=== PATIENT | female | born 1970 | race Caucasian/White ===

== ENCOUNTER → 2023-08-21 12:54 | Outpatient (REF) | payer OTHER, SELFPAY | LOC: HWWDC 12:54 | PROVIDERS: ATTENDING PHYSICIAN Nurse Practitioner Family | DX: Z12.31 Encounter for screening mammogram for malignant neoplasm of breast (principal) | CPT/HCPCS: 77063; 77067 ==

== ENCOUNTER 2023-08-21 15:34 | Emergency (ER) | payer OTHER, SELFPAY ==
[2023-08-21 15:34] VITALS: BMI 32.8
[2023-08-21 15:44] VITALS: BP 153/78
[2023-08-21 16:44] LABS: % Basophils 0.9 % (0-2); % Eosinophils 4.1 % (0-6); % Immature Granulocytes 0.3 % (0-0.5); % Lymphocytes 31.3 % (20.5-51.1); % Monocytes 8.7 % (1.7-9.3); % Neutrophils 54.7 % (42.2-75.2); Absolute Basophils 0.1 10^3/uL (0-0.2); Absolute Eosinophils 0.3 10^3/uL (0-0.7); Absolute Lymphocytes 2.1 10^3/uL (1.2-3.4); Absolute Monocytes 0.6 10^3/uL (0.1-0.6); Absolute Neutrophils 3.7 10^3/uL (1.4-6.5); Hematocrit 37.9 % (37.0-47.0); Hemoglobin 13.1 g/dL (12.0-16.0); Mean Corp Hgb Conc. 34.6 g/dL (33.0-37.0); Mean Corpuscular Hgb 29.6 pg (27.0-31.0); Mean Corpuscular Volume 85.7 fL (81.0-99.0); Mean Platelet Volume 9.3 fL (7.4-10.4); Nucleated Red Blood Cells % 0 %; Platelet Count 179 10^3/uL (130-400); Red Blood Cell Count 4.42 10^6/uL (4.20-5.40); Red Cell Dist. Width 12.9 % (11.5-14.5); White Blood Cell Count 6.8 10^3/uL (4.8-10.8)
[2023-08-21 16:53] LABS: ALT (SGPT) 34 U/L (0-35); AST (SGOT) 32 U/L (14-36); Albumin 4.3 g/dl (3.5-5.0); Alkaline Phosphatase 53 U/L (38-126); Blood Urea Nitrogen 19 mg/dl (7-17); Calcium 10.1 mg/dl (8.4-10.2); Carbon Dioxide 22 mmol/L (22-30); Chloride 104 mmol/L (98-107); Estimated Creatinine Clearance 82 ml/min; Glucose 202 mg/dl (70-99); Sodium 138 mmol/L (135-145); Total Bilirubin 0.6 mg/dl (0.2-1.3); eGFR > 60.00
[2023-08-21 17:02] LABS: Troponin I < 0.012 ng/ml
[2023-08-21] MEDS: PROTONIX 40 MG PO (18:27)
[2023-08-21 18:30] VITALS: BP 145/75
[2023-08-21 18:32] VITALS: BP 145/75
--- NOTE | 2023-08-21 23:18 | ED.GENMED ---
History of Present Illness
General
Chief Complaint: Chest Pain
Source: patient
Exam Limitations: none
Time Seen by Provider: 08/21/23 17:42
Nursing documentation reviewed up to this point in time: agreed with
Travel History
Have you had any contact with someone who has COVID-19?: No
Do you have any symptoms of coronavirus? Fever > 100 degrees, chills, cough, shortness of breath, sore throat, loss of taste or smell, muscle aches, or headache?: No
History of Present Illness
History of Present Illness:
Patient to ED for eval of intermittent sharp chest pain. Symptoms started approx 2 weeks ago. Reports 'waves of nausea' Denies fever/chills, vomiting, diarrhea. No SOB, diaphoresis. Sharp pain lasts for a few minutes and then resolves. No
aggravating or alleviating factors. Brought to ED by family for eval.
Past History
Past History
ED Past Medical History: CAD, COPD, Hypercholesterolemia, NIDDM, Psychiatric (Anxiety, depression), Other (peripheral arterial disease ), Other (Sleep apnea, uses CPAP) and Other (Aortic stenosis, diverticulitis, GERD)
ED Past Surgical History: Cardiac (3 cardiac stents 2018) and Other (catheterization of abdominal aorta with endarterectomy)
Social History
Tobacco: Former smoker
Alcohol: Occasional
Drug: None
Personal:
Living: alone
Employment: Employed
Family History
Family History: CAD
Review of Systems
Review of Systems
Allergies reviewed?: Yes
All Other Systems: ROS reviewed and negative except as documented in HPI and ROS
EENT: Reports no symptoms
Respiratory: Reports no symptoms
Cardiac: Reports chest pain
ABD/GI: Reports no symptoms
: Reports no symptoms
Musculoskeletal: Reports no symptoms
Skin: Reports no symptoms
Neurological: Reports no symptoms
Psychiatric: Reports no symptoms
Phy Exam
General Physical Exam
General Presentation: well appearing and no apparent distress
General age: appears stated age
General Skin: warm and dry
General Habitus: normal
General Mental: alert
Cardiovascular Exam
Cardiovascular Exam: regular rate/rhythm and no edema
Pulmonary Exam
Pulmonary Exam: lungs clear and no respiratory distress
Gastrointestinal Exam
Gastrointestinal Exam: normal bowel sounds, non tender, soft, no organomegaly, no pulsatile mass, non distended and no cva tenderness
Musculoskeletal Exam
Musculoskeletal Exam: full ROM and neuro vasc intact
Skin Exam
Skin Exam: normal color, warm/dry and no rash
Psychiatric Exam
Psychiatric Exam: normal mood/affect
Scores
Heart Score for Chest Pain Patients
STEMI patient?: No
History: Slightly or Non-Suspicious
ECG: Normal
Age: >45 - <65 years
Risk Factors: >/= 3 Risk Factors or History of CAD
Troponin: </= Normal Limit
Heart Score for Chest Pain Patients: 3
Heart Score Risk: 2.5% MACE over next 6 weeks
Course
Orders/Labs/Results
Orders:
Orders
08/21/23 15:43
Electrocardiogram (*1) Urgent
Reason for Study: Chest Pain
EKG- Treatment ONCE
08/21/23 16:06
Complete Blood Count/With Diff Urgent
08/21/23 16:07
Comprehensive Metabolic Panel Urgent
Troponin I Urgent
08/21/23 16:23
CR Chest - 2 Views Urgent
Comment:
Reason For Exam: chest pain
08/21/23 18:21
Pantoprazole [Protonix] 40 mg PO NOW STA
Abnormal Lab Results
08/21/23
16:07
BUN 19 H mg/dl
(7-17)
Glucose 202 H mg/dl
(70-99)
01/31/24 16:06
08/21/23 16:07
Vital Signs
Initial and Last Documented VS:
Initial Vital Signs
Temp Pulse Resp BP Pulse Ox
98.5 F 79 16 153/78 98
08/21/23 15:44 08/21/23 15:44 08/21/23 15:44 08/21/23 15:44 08/21/23 15:44
Last Documented Vital Signs
Temp Pulse Resp BP Pulse Ox
98.5 F 72 16 145/75 96
08/21/23 15:44 08/21/23 18:32 08/21/23 15:44 08/21/23 18:32 08/21/23 18:32
*Pulse Oximetry
Patient hypoxic: no
*Critical Care Note
Total Time (30-74mins, 75-104mins- exclusive of procedures): Not Applicable
ED Attending Note
-
Portions of this chart may have been created with voice recognition software.� Occasional wrong word or��sound alike� substitutions may have occurred due to the inherent limitations of voice recognition software.
Discharge Plan
Departure
Patient Disposition: Home (Routine Discharge)
Date of Disposition: 08/21/23
Time of Disposition: 18:21
Patient with high blood pressure during this ER visit?: No
Condition: Good
Covid-19: Not Applicable
Discharge Problem:
Chest pain
Instructions: Chest Pain CBC Follow Up
Prescriptions:
New
pantoprazole 40 mg tablet,delayed release (DR/EC)
40 mg PO DAILY Qty: 14 0RF
No Action
aspirin 81 MG tablet,delayed release (DR/EC)
81 mg PO DAILY
citalopram 20 MG tablet
20 mg PO BID
cyanocobalamin (vitamin B-12) 1,000 MCG tablet
2,000 mcg PO DAILY
cholecalciferol (vitamin D3) 2,000 UNIT tablet
2,000 unit PO DAILY
gabapentin 600 MG tablet
600 mg PO DAILY
glimepiride 1 MG tablet
2 mg PO BID AT 0800,1700
gabapentin [Neurontin] 600 MG tablet
1,200 mg PO HS
alprazolam 0.5 MG tablet
0.5 mg PO DAILYPRN PRN (Reason: anxiety)
rosuvastatin 20 MG tablet
20 mg PO HS
(DME) pen needle, diabetic 1 EACH needle
1 ea MC HS Qty: 100 0RF
Rx Instructions:
BD jose antonio
insulin glargine [Lantus Solostar U-100 Insulin] 300 UNITS/3 ML insulin pen
14 units SC HS Qty: 1 0RF
Rx Instructions:
please follow with PCP on this
metformin 1,000 MG tablet
1,000 mg PO BID@0800,1700 Qty: 0 0RF
Rx Instructions:
Resume Saturday; don't take until then
nitroglycerin 0.4 MG tablet, sublingual
0.4 mg sublingual [id number] PRN (Reason: chest pain) Qty: 25 3RF
Rx Instructions:
Take only as needed for chest pain
fenofibrate nanocrystallized 145 MG tablet
145 mg PO HS Qty: 30 3RF
Referrals:
Elijah Coello MD [Active] - Tomorrow
Activity Restrictions/Additional Instructions:
Return to the emergency department immediately for any changes in/return of your symptoms.
Interventions
Interventions:
*Risk Screen - Suicide Last Done: 08/21/23 15:44
*General Assessment Last Done: 08/21/23 18:32
*Neglect/Abuse Screening Last Done: 08/21/23 18:32
ED- Fall Risk Assessment Last Done: 08/21/23 15:44
*ED COVID-19 Vaccine History Last Done: 08/21/23 15:44
*Nursing Disposition Last Done: 08/21/23 18:32
ED- Cardiac Assessment Last Done: 08/21/23 17:50
Discharge Date and Time
Discharge Date/Time: 08/21/23 18:40
== END 2023-08-21 18:40 | disposition home or self-care (01) ==
LOC: EMR 15:34
PROVIDERS: EMERGENCY PHYSICIAN Emergency Medicine; FAMILY PHYSICIAN Nurse Practitioner Family
DX: R07.9 Chest pain, unspecified (principal); R11.0 Nausea; E11.51 Type 2 diabetes mellitus with diabetic peripheral angiopathy without gangrene; E78.00 Pure hypercholesterolemia, unspecified; G47.30 Sleep apnea, unspecified; K21.9 Gastro-esophageal reflux disease without esophagitis; Z95.5 Presence of coronary angioplasty implant and graft; I25.10 Atherosclerotic heart disease of native coronary artery without angina pectoris
CPT/HCPCS: 99285; 71046; 80053; 84484; 85025; 93005

== ENCOUNTER → 2023-08-28 10:15 | Outpatient (REF) | payer OTHER, SELFPAY | LOC: WDC 10:15 | PROVIDERS: ATTENDING PHYSICIAN Nurse Practitioner Family | DX: R92.8 Other abnormal and inconclusive findings on diagnostic imaging of breast (principal) | CPT/HCPCS: 76642 ==

== ENCOUNTER → 2023-09-04 11:26 | Outpatient (REF) | payer OTHER, SELFPAY | LOC: HWRAD 11:26 | PROVIDERS: ATTENDING PHYSICIAN Nurse Practitioner Family | DX: Z87.891 Personal history of nicotine dependence (principal) | CPT/HCPCS: 71271 ==

== ENCOUNTER → 2023-09-19 18:25 | Outpatient (REF) | payer OTHER, SELFPAY | LOC: PAVMRI 18:25 | PROVIDERS: ATTENDING PHYSICIAN Orthopaedic Surgery; FAMILY PHYSICIAN Nurse Practitioner Family | DX: M51.36 Other intervertebral disc degeneration, lumbar region (principal) | CPT/HCPCS: 72148 ==

== ENCOUNTER → 2024-01-28 12:56 | Outpatient (REF) | payer OTHER, SELFPAY | LOC: RAD 12:56 | PROVIDERS: ATTENDING PHYSICIAN Internal Medicine Cardiovascular Disease; FAMILY PHYSICIAN Nurse Practitioner Family | DX: I73.9 Peripheral vascular disease, unspecified (principal); E11.59 Type 2 diabetes mellitus with other circulatory complications; M48.061 Spinal stenosis, lumbar region without neurogenic claudication | CPT/HCPCS: 93922; 93925 ==

== ENCOUNTER → 2024-04-14 08:03 | Outpatient (REF) | payer OTHER, SELFPAY | LOC: WOUND 08:03 | PROVIDERS: ATTENDING PHYSICIAN Surgery; FAMILY PHYSICIAN Nurse Practitioner Family | DX: S61.452A Open bite of left hand, initial encounter (principal); W54.0XXA Bitten by dog, initial encounter; Q25.1 Coarctation of aorta; Z87.891 Personal history of nicotine dependence; I25.118 Atherosclerotic heart disease of native coronary artery with other forms of angina pectoris; I73.9 Peripheral vascular disease, unspecified; J44.9 Chronic obstructive pulmonary disease, unspecified; Z95.5 Presence of coronary angioplasty implant and graft | CPT/HCPCS: 99204 ==

== ENCOUNTER → 2024-08-28 08:56 | Outpatient (REF) | payer OTHER, SELFPAY | LOC: RCS 08:56 | PROVIDERS: ATTENDING PHYSICIAN Internal Medicine Cardiovascular Disease; FAMILY PHYSICIAN Nurse Practitioner Family | DX: R06.02 Shortness of breath (principal); R06.09 Other forms of dyspnea; Z95.5 Presence of coronary angioplasty implant and graft | CPT/HCPCS: 93306 ==

== ENCOUNTER → 2024-09-04 07:16 | Outpatient (REF) | payer OTHER, SELFPAY | LOC: HWRCS 07:16 | PROVIDERS: ATTENDING PHYSICIAN Internal Medicine Cardiovascular Disease; FAMILY PHYSICIAN Nurse Practitioner Family | DX: R06.02 Shortness of breath (principal); R06.09 Other forms of dyspnea; Z95.5 Presence of coronary angioplasty implant and graft | CPT/HCPCS: 78452; 93017; A9500 ==

== ENCOUNTER 2024-09-04 10:46 | Emergency (ER) | payer OTHER, SELFPAY ==
[2024-09-04 10:52] VITALS: BP 136/77
[2024-09-04 10:53] VITALS: BP 136/77
[2024-09-04 11:00] VITALS: BP 128/72
--- NOTE | 2024-09-04 11:00 | ED.GENMED ---
History of Present Illness
General
Chief Complaint: Chest Pain
Source: patient and ambulance crew
Exam Limitations: none
Time Seen by Provider: 09/04/24 10:50
History of Present Illness
History of Present Illness:
53yoF with a history of coronary artery disease s/p PCI, hyperlipidemia, type 2 diabetes, obesity, and DOMENICA presenting via EMS for evaluation of shortness of breath. Patient has been having shortness of breath and indigestion with exertion over the
past several weeks. She had a nuclear stress test today and during the stress test, she developed shortness of breath and chest discomfort. She was given 2 nitroglycerin tabs without improvement and EMS was called. She received 325mg aspirin
prehospital. She continues to have minor chest discomfort. She had similar symptoms in 2018 prior to her [place].
Past History
Past History
ED Past Medical History: CAD, COPD, Hypercholesterolemia, NIDDM, Psychiatric (Anxiety, depression), Other (peripheral arterial disease ), Other (Sleep apnea, uses CPAP) and Other (Aortic stenosis, diverticulitis, GERD)
ED Past Surgical History: Cardiac (3 cardiac stents 2018) and Other (catheterization of abdominal aorta with endarterectomy)
Social History
Tobacco: Former smoker
Alcohol: Occasional
Drug: None
Personal:
Living: alone
Employment: Employed
Family History
Family History: CAD
Phy Exam
General Physical Exam
General Presentation: well appearing and no apparent distress
General age: appears stated age
General Skin: warm and dry
General Habitus: normal
General Mental: alert
ENT Exam
ENT Exam: normocephalic
Cardiovascular Exam
Cardiovascular Exam: regular rate/rhythm, no edema, no murmur and normal peripheral pulses (2+ DP pulses bilaterally)
Pulmonary Exam
Pulmonary Exam: lungs clear, no respiratory distress, no rales, no crackles, no rhonchi and no wheezing
Neurological Exam
Neurological Exam: alert
Siri Coma Scale
Eye Opening: Spontaneous
Verbal Response: Oriented
Motor Response: Obeys Commands
GCS Total Score: 15
Skin Exam
Skin Exam: normal color and warm/dry
Psychiatric Exam
Psychiatric Exam: normal mood/affect
Scores
Heart Score for Chest Pain Patients
STEMI patient?: No
History: Moderately Suspicious
ECG: Normal
Age: >45 - <65 years
Risk Factors: >/= 3 Risk Factors or History of CAD
Troponin: </= Normal Limit
Heart Score for Chest Pain Patients: 4
Heart Score Risk: 20.3% MACE over next 6 weeks
Course
Orders/Labs/Results
Orders:
Orders
09/04/24 10:57
ECG [Electrocardiogram (*1)] Urgent
Reason for Study: Chest Pain
EKG- Treatment ONCE
09/04/24 10:59
Cardiac Monitoring- Treatment ONCE
CR Chest - 2 Views Urgent
Comment:
Reason For Exam: SOB
09/04/24 11:05
Complete Blood Count/With Diff Urgent
Comprehensive Metabolic Panel Urgent
PTT Urgent
Prothrombin Time Urgent
Troponin I Urgent
09/04/24 11:59
EKG- Treatment ONCE
09/04/24 14:00
Electrocardiogram (*1) Urgent
Reason for Study: Shortness of Breath
09/04/24 14:01
Troponin I Urgent
Abnormal Lab Results
09/04/24
11:05
BUN 20 H mg/dl
(7-17)
Glucose 208 H mg/dl
(70-99)
09/04/24 11:05
09/04/24 11:05
Vital Signs
Initial and Last Documented VS:
Initial Vital Signs
Pulse Resp BP Pulse Ox
70 12 136/77 97
09/04/24 10:52 02/14/25 10:52 09/04/24 10:52 09/04/24 10:52
Last Documented Vital Signs
Temp Pulse Resp BP Pulse Ox
98.2 F 72 17 124/70 93
09/04/24 10:56 09/04/24 14:59 09/04/24 14:59 09/04/24 14:00 09/04/24 14:45
MDM/Problems Addressed
Differential Diagnosis Includes:
53yoF here with SOB/indigestion that occurred during a nuclear stress test today. Hx of CAD s/p PCI. Has been having exertional dyspnea x several weeks. VSS. She is well-appearing in no acute distress. Exam is reassuring. Differential diagnosis
includes but is not limited to: Angina, ACS, GERD
Initial ED plan: Check cardiac labs, EKG, and chest x-ray. Will discuss with cardiology.
*EKG
Interpreted by ED Provider?: Yes
EKG Intrepretation Date: 09/04/24
Heart Rate: 76
Rate: normal
Rhythm: sinus
[place]: normal axis
Interval: normal interval
QRS Pattern: normal QRS
Ischemia: no ischemia
*Critical Care Note
Total Time (30-74mins, 75-104mins- exclusive of procedures): Not Applicable
Update Note
Update Note:
EKG shows normal sinus rhythm without ischemic changes and troponin is normal. Chest x-ray clear. Delta troponin/EKG performed at 3 hours unchanged. Patient asymptomatic on reassessment. Patient was evaluated by Dr. Dubois. Patient to be
discharged with plan for outpatient catheterization next week. Cardiology team recommending initiation of Imdur 30 mg daily and prescription for 1 month supply was provided. Strict ED return precautions discussed. Patient in agreement with plan
and was discharged in stable condition.
ED Attending Note
-
Portions of this chart may have been created with voice recognition software.� Occasional wrong word or��sound alike� substitutions may have occurred due to the inherent limitations of voice recognition software.
Discharge Plan
Departure
Patient Disposition: Home (Routine Discharge)
Date of Disposition: 09/04/24
Time of Disposition: 15:00
Patient with high blood pressure during this ER visit?: No
Discharge Problem:
Shortness of breath
Prescriptions:
New
isosorbide mononitrate 30 mg tablet extended release 24 hr
30 mg PO DAILY Qty: 30 0RF
No Action
aspirin 81 MG tablet,delayed release (DR/EC)
81 mg PO DAILY
citalopram 20 MG tablet
20 mg PO BID
cyanocobalamin (vitamin B-12) 1,000 MCG tablet
2,000 mcg PO DAILY
cholecalciferol (vitamin D3) 2,000 UNIT tablet
2,000 unit PO DAILY
gabapentin 600 MG tablet
600 mg PO DAILY
glimepiride 1 MG tablet
2 mg PO BID AT 0800,1700
gabapentin [Neurontin] 600 MG tablet
1,200 mg PO HS
alprazolam 0.5 MG tablet
0.5 mg PO DAILYPRN PRN (Reason: anxiety)
rosuvastatin 20 MG tablet
20 mg PO HS
(DME) pen needle, diabetic 1 EACH needle
1 ea MC HS Qty: 100 0RF
Rx Instructions:
BD jose antonio
insulin glargine [Lantus Solostar U-100 Insulin] 300 UNITS/3 ML insulin pen
14 units SC HS Qty: 1 0RF
Rx Instructions:
please follow with PCP on this
metformin 1,000 MG tablet
1,000 mg PO BID@0800,1700 Qty: 0 0RF
Rx Instructions:
Resume Saturday; don't take until then
nitroglycerin 0.4 MG tablet, sublingual
0.4 mg sublingual [id number] PRN (Reason: chest pain) Qty: 25 3RF
Rx Instructions:
Take only as needed for chest pain
fenofibrate nanocrystallized 145 MG tablet
145 mg PO HS Qty: 30 3RF
pantoprazole 40 mg tablet,delayed release (DR/EC)
40 mg PO DAILY Qty: 14 0RF
Referrals:
Keisha Garcia CRNP [Family Provider] -
Activity Restrictions/Additional Instructions:
Take Imdur as prescribed.
Please follow-up with your hebrew cantor next week for further testing. Return to the ER immediately with any new or worsening symptoms.
Interventions
Interventions:
*Risk Screen - Suicide Last Done: 09/04/24 10:58
*General Assessment Last Done: 09/04/24 10:58
*Neglect/Abuse Screening Last Done: 09/04/24 10:58
ED- Fall Risk Assessment Last Done: 09/04/24 11:22
*ED COVID-19 Vaccine History Last Done: 09/04/24 10:58
*Nursing Disposition Last Done: 09/04/24 15:11
ED- Cardiac Assessment Last Done: 09/04/24 11:12
Discharge Date and Time
Discharge Date/Time: 09/04/24 15:12
Print Language: BENGALI
[2024-09-04 11:03] VITALS: BMI 36.3
[2024-09-04 11:17] LABS: % Basophils 0.6 % (0-2); % Eosinophils 1.5 % (0-6); % Immature Granulocytes 0.1 % (0-0.5); % Lymphocytes 26.3 % (20.5-51.1); % Monocytes 8.7 % (1.7-9.3); % Neutrophils 62.8 % (42.2-75.2); Absolute Eosinophils 0.1 10^3/uL (0-0.7); Absolute Lymphocytes 1.8 10^3/uL (1.2-3.4); Absolute Monocytes 0.6 10^3/uL (0.1-0.6); Absolute Neutrophils 4.2 10^3/uL (1.4-6.5); Hematocrit 42.5 % (37.0-47.0); Hemoglobin 14.1 g/dL (12.0-16.0); Mean Corp Hgb Conc. 33.2 g/dL (33.0-37.0); Mean Corpuscular Hgb 29.7 pg (27.0-31.0); Mean Corpuscular Volume 89.5 fL (81.0-99.0); Mean Platelet Volume 9.6 fL (7.4-10.4); Nucleated Red Blood Cells % 0 %; Platelet Count 164 10^3/uL (130-400); Red Blood Cell Count 4.75 10^6/uL (4.20-5.40); Red Cell Dist. Width 13.2 % (11.5-14.5); White Blood Cell Count 6.7 10^3/uL (4.8-10.8)
[2024-09-04 11:28] LABS: INR 1.01; PT 13.6 Sec (11.4-14.6)
[2024-09-04 11:29] LABS: APTT 27.1 Sec (23.4-35.0)
[2024-09-04 11:31] LABS: ALT (SGPT) 28 U/L (0-35); AST (SGOT) 34 U/L (14-36); Albumin 4.6 g/dl (3.5-5.0); Alkaline Phosphatase 50 U/L (38-126); Blood Urea Nitrogen 20 mg/dl (7-17); Calcium 9.3 mg/dl (8.4-10.2); Carbon Dioxide 23 mmol/L (22-30); Chloride 107 mmol/L (98-107); Estimated Creatinine Clearance 86 ml/min; Glucose 208 mg/dl (70-99); Potassium 4.4 mmol/L (3.5-5.1); Sodium 140 mmol/L (135-145); Total Bilirubin 0.7 mg/dl (0.2-1.3); Total Protein 7.3 g/dl (6.3-8.2); eGFR > 60.00
[2024-09-04 11:42] LABS: Troponin I < 0.012 ng/ml
[2024-09-04 12:13] VITALS: BP 128/79
[2024-09-04 13:00] VITALS: BP 138/86
--- NOTE | 2024-09-04 13:05 | CON.CAR ---
Addendum entered and electronically signed by David Dubois MD 09/04/24 15:31:
I saw and examined the patient.
The PRESS FE[employer]ER BROOMCORN's note was reviewed and I agree with the note.
Comment: 53 yo female with diffuse severe CAD with multiple previous coronary stents 2018, last catheterization 08/25/2019 demonstrating stable disease with all stents patent but with extensive small vessel disease, abdominal aortic stenosis s/p
aortic endarterectomy 2010, PAD occlusion of her PABLO, DM, and DOMENICA on CPAP, who presents to the ER with chest pain during her stress test at the [facility] today.
SHe has negative troponins and unremarkable ECGs.
She has continued to have ongoing worsening anginal CP that appears to be increasing in frequency.
- Imdur 30 mg
- RHC/LHC next week
Original Note:
Consultation
Consultation Request
Date/Time Consultation Requested: 09/04/24 11:30a
Date/Time Consultation Performed: 09/04/24 12:15p
Requesting Provider: Jailene Mills PA-C
Performing Provider: PATRICE Torres for Dr. Dubois
Reason for Consultation: chest pain
Medical History
-
Chief Complaint: chest pain
History of Present Illness:
Mrs. Soto is a 53 yo female with diffuse severe CAD with multiple previous coronary stents 2018, last catheterization 08/25/2019 demonstrating stable disease with all stents patent but with extensive small vessel disease, abdominal aortic stenosis
s/p aortic endarterectomy 2010, PAD occlusion of her PABLO, DM, and DOMENICA on CPAP, who presents to the ER with chest pain during her stress test at the [facility] today. Imaging did not show ischemia, but she continued to have chest pain.
Past Medical History
Past Medical History: Other (as above )
Social History
Tobacco: Former Smoker
Personal:
Living: With Family
Family History
Family History: Reviewed & Not Pertinent
Allergies / Home Medications
Allergy/AdvReac Type Severity Reaction Status Date / Time
metoprolol [From Toprol XL] Allergy Unknown Verified 09/04/24 11:03
�Medication �Instructions �Recorded �Confirmed �Type
aspirin 81 mg tablet,delayed 81 mg PO DAILY 05/31/10 08/25/19 History
release
citalopram 20 mg tablet 20 mg PO BID 01/23/11 08/25/19 History
cholecalciferol (vitamin D3) 50 2,000 unit PO DAILY 08/31/14 08/25/19 History
mcg (2,000 unit) tablet
cyanocobalamin (vitamin B-12) 2,000 mcg PO DAILY 08/31/14 08/25/19 History
1,000 mcg tablet
gabapentin 600 mg tablet 600 mg PO DAILY 08/20/17 08/25/19 History
glimepiride 1 mg tablet 2 mg PO BID AT 0800,1700 04/08/18 08/25/19 History
gabapentin 600 mg tablet 1,200 mg PO HS 07/20/18 08/25/19 History
(Neurontin)
alprazolam 0.5 mg tablet 0.5 mg PO DAILYPRN PRN anxiety 08/25/19 08/25/19 History
rosuvastatin 20 mg tablet 20 mg PO HS 08/25/19 08/25/19 History
fenofibrate nanocrystallized 145 145 mg PO HS #30 tabs 08/26/19 Rx
mg tablet
insulin glargine 100 unit/mL (3 14 units (0.14 mL) SC HS ##1 08/26/19 Rx
mL) subcutaneous pen (Lantus
Solostar U-100 Insulin)
metformin 1,000 mg tablet 1,000 mg PO BID@0800,1700 ##0 08/26/19 08/25/19 Rx
nitroglycerin 0.4 mg sublingual 0.4 mg sublingual [id number] PRN 08/26/19 Rx
tablet chest pain #25 tabs
pen needle, diabetic 31 gauge x ##100 08/26/19 Rx
1/4'
pantoprazole 40 mg tablet,delayed 40 mg PO DAILY #14 tabs 08/21/23 Rx
release
Review of Systems
-
History Source: Patient
All other systems: Negative unless noted
Physical Exam
Vital Signs
Temp Pulse Resp BP Pulse Ox
98.2 F 79 15 128/72 93
09/04/24 10:56 09/04/24 11:30 09/04/24 11:30 09/04/24 11:00 09/04/24 11:30
Lab Results
09/04/24 11:05
09/04/24 11:05
Troponin I < 0.012 ng/ml 09/04/24 11:05
Physical Exam
General: Well Developed, Well Nourished and No Apparent Distress
HEENT: Normocephalic, Anicteric and Moist Mucous Membranes
Respiratory: Clear and Non Labored Respirations
Cardiac: S1/S2 and Regular Rhythm
Breast: Deferred by me
GI: Soft, Non Tender, Non Distended and Normal Bowel Sounds
Rectal: Deferred by Provider
Musculoskeletal: No Clubbing, No Cyanosis and No Edema
Skin: Warm and Dry
Neuro: AO x 3
Hematologic/Lymphatic: No Lymphadenopathy
Psych: Calm
Impression / Plan
-
Chest pain - recurrent.
- she had chest pain during stress test today.
- stress imaging today did not show ischemia.
- troponin < 0.012, check a second troponin.
- last catheterization 08/25/2019 demonstrated stable disease with all stents patent but with extensive small vessel disease.
- if second troponin is negative then OK for d/c home and will set up outpatient right and left heart cath early next week.
- will add Imdur 30mg daily.
Chronic stable problems include:
HTN, HLD, DOMENICA on CPAP, PAD, DM, obesity.
Data Reviewed
-
EKG: Tracing Personally Visualized and interpreted (NSR 76 bpm )
Radiology: Report Reviewed by me (CXR: NAD )
Labs: Labs Reviewed by me
[2024-09-04 14:00] VITALS: BP 124/70
[2024-09-04 14:28] LABS: Troponin I < 0.012 ng/ml
== END 2024-09-04 15:12 | disposition home or self-care (01) ==
LOC: EMR 10:46
PROVIDERS: Physician Assistant; EMERGENCY PHYSICIAN Emergency Medicine; FAMILY PHYSICIAN Nurse Practitioner Family; OTHER PHYSICIAN Internal Medicine Cardiovascular Disease
DX: R06.02 Shortness of breath (principal); R07.89 Other chest pain; I10 Essential (primary) hypertension; E78.00 Pure hypercholesterolemia, unspecified; G47.33 Obstructive sleep apnea (adult) (pediatric); I25.10 Atherosclerotic heart disease of native coronary artery without angina pectoris; E11.9 Type 2 diabetes mellitus without complications; K21.9 Gastro-esophageal reflux disease without esophagitis; J44.9 Chronic obstructive pulmonary disease, unspecified; I35.0 Nonrheumatic aortic (valve) stenosis; E66.9 Obesity, unspecified; Z79.899 Other long term (current) drug therapy; Z95.5 Presence of coronary angioplasty implant and graft; Z87.891 Personal history of nicotine dependence
CPT/HCPCS: 99285; 71046; 78452; 80053; 84484; 85025; 85610; 85730; 93005; 93017; A9500

== ENCOUNTER 2024-09-09 07:34 | Day surgery (SDC) | payer OTHER, SELFPAY ==
[2024-09-09] VITALS (17 sets, daily range): BP systolic 134–170; BP diastolic 55–84; BMI 35.2
[2024-09-09 08:33] LABS: Glucose - Point of Care 223 mg/dl (70-99)
[2024-09-09] MEDS: NSS 270 ML IV (08:41)
--- NOTE | 2024-09-09 08:58 | PTCARENOTE ---
accu check of 223 reported to ge atkins np . no med orders at this time . will recheck after procedure per ge
--- NOTE | 2024-09-09 12:21 | ITS.CL.CATH ---
[facility] - Catheterization
Cardiac Catheterization
Procedure Report:
CARDIAC CATHETERIZATION REPORT
Date of Procedure: 09/09/2024
Referring: David Dubois M.D.
Indication: Known coronary artery disease, chest pain, dyspnea on exertion, normal stress test with suspicion for false negative.
PROCEDURE:
1. Right heart catheterization.
2. Coronary angiography.
3. Left heart catheterization.
A total of 7 minutes of procedural/moderate sedation was utilized. An independent medical intern was present to assist with and help manage the patient's level of consciousness and physiologic status.
ACCESS:
1. 6 [place] left radial artery using a modified Seldinger technique.
2. 5 [place]ag[place] right antecubital vein using a modified Seldinger technique under ultrasound guidance. Ultrasound image obtained.
CATHETERS:
1. 5 [place]ag[place] balloon wedge.
2. 5 [place]ag[place] JL 4.
3. 5 [place]ag[place] JR4.
HEMODYNAMIC DATA
Weight (kg): 90.0
AO (s/d/x, mmHg): 148/76/106
LV (s/x, mmHg): 149/14
PCWP (a/v/x, mmHg): 17/15
PA (s/d/x, mmHg): 30/
RV (s/x, mmHg): 30/9
RA (a/v/x, mmHg): 13//10
SVC SvO2 (%): 69.7
IVC SvO2 (%): Not obtained.
RA SvO2 (%): Not obtained.
RV SvO2 (%): Not obtained.
PA SvO2 (%): 68.6
SaO2 (%): 94.0
Hbg (g/dL): 13.3
RENETTA
CO (L/min): 4.06
CI (L/min/m2): 2.11
Thermodilution
CO (L/min): Not performed.
CI (L/min/m2): Not performed.
TPG (mmHg): 8
PVR (Cloud Units): 1.97
SVR (dynes*seconds*cm^-5): 1892
AVO2 Diff (Volume %): 4.59
AV gradient (x, mmHg): None.
AV area (cm2): Normal.
MV gradient (x, mmHg): Not obtained.
MV area (cm2): Not obtained.
LEFT VENTRICULOGRAPHY: Not performed.
AORTOGRAPHY: Not performed.
CORONARY ANGIOGRAPHY
Dominance: Right.
Left Main: Normal size, bifurcating vessel. There is no coronary artery disease.
LAD: Normal size vessel giving rise to 1 significant diagonal. A patent stent is observed in the mid vessel. There is a 10% ISR lesion in the proximal margin of the stent. There is no other coronary artery disease.
Ramus: Congenitally absent.
Circumflex: Medium size, nondominant vessel that is essentially a single obtuse marginal which bifurcates into 2 daughter branches. A patent stent is observed in the ostial/proximal vessel. There is a 30% ISR lesion at the bend of the artery.
RCA: Large size, dominant vessel with a large posterolateral arcade. There are luminal irregularities in the body of the vessel. There are tandem 30% lesions in the mid and distal RPDA.
INTERVENTIONS
None.
Closure Device: Vascular band x 2 for the left radial artery, manual pressure for the right antecubital vein.
Radiation dose (mGy): 469.24
DAP (cm2.Gy): 27.8867
Fluoroscopy time (minutes): 3.6
CONCLUSIONS:
1. Right dominant circulation with a patent stent in the mid LAD with a 10% ISR lesion in the proximal margin, a patent stent in the ostial/proximal circumflex with a 30% ISR lesion around the bend of the artery and a large, dominant RCA with
tandem 30% lesions in the mid and distal RPDA.
2. Normal filling pressures (LVEDP = 14 mmHg, PCWP = 15 mmHg at 90.0 kg).
3. Preserved systolic function (cardiac index = 2.11 L/min/m�).
4. No obvious cardiac source of chest discomfort or dyspnea on exertion.
RECOMMENDATIONS:
1. Expectant management after cardiac catheterization via left radial and right antecubital approach.
2. Limited weight bearing on the left wrist for one week.
3. Continue aggressive secondary prevention with risk factor mitigation including high-dose, high potency statin. Goal LDL <55.
4. Consider pulmonary evaluation.
Copy to: David Dubois M.D., PATRICE Montero
Trever Gee DO, FACC, FACP
[2024-09-09 12:58] LABS: Glucose - Point of Care 150 mg/dl (70-99)
== END 2024-09-09 15:58 | disposition home or self-care (01) ==
LOC: CATH 07:34
PROVIDERS: ATTENDING PHYSICIAN Internal Medicine Cardiovascular Disease; FAMILY PHYSICIAN Nurse Practitioner Family; OTHER PHYSICIAN Internal Medicine Cardiovascular Disease
DX: I25.10 Atherosclerotic heart disease of native coronary artery without angina pectoris (principal); Z95.5 Presence of coronary angioplasty implant and graft; R07.9 Chest pain, unspecified; R06.09 Other forms of dyspnea; E78.5 Hyperlipidemia, unspecified; E11.9 Type 2 diabetes mellitus without complications; G47.33 Obstructive sleep apnea (adult) (pediatric); Z79.82 Long term (current) use of aspirin; Z79.84 Long term (current) use of oral hypoglycemic drugs; Z79.4 Long term (current) use of insulin; Z79.85 Long-term (current) use of injectable non-insulin antidiabetic drugs
CPT/HCPCS: C1894; 82962; 93460; Q9967